=== PATIENT | male | born 1980 ===

== ENCOUNTER 2020-09-29 00:49 | Emergency (ER) | payer BC ==
--- NOTE | 2020-09-29 01:13 | EDM.PDOC ---
ED HPI GENERAL MEDICAL PROBLEM - General Chief Complaint: Back Pain or Injury Stated Complaint: back pain Time Seen by Provider: 09/29/20 01:09 Source of Information: Reports: Patient - History of Present Illness INITIAL COMMENTS - FREE TEXT/NARRATIVE: George is a 40 y/o male who is brought to the ER via POV with some acute back pain. He reports that pain just started when he got to work tonight. He denies any specific injury. He was given a medication by the safety clothing and equipment developer prior to arrival to the ER. Gera shooting pains down his legs. Reports upon arrival to the ER the pain is better. Treatments TOURIST ESCORT: Reports: NSAIDS - Related Data Allergies Allergy/AdvReac Type Severity Reaction Status Date / Time No Known Allergies Allergy Verified 09/29/20 00:51 Home Meds: Home Meds . [No Known Home Meds] 09/29/20 [History] Past Medical History - Past Health History Medical/Surgical History: Denies Medical/Surgical History Social & Family History - Tobacco Use Tobacco Use Status *Q: Never Tobacco User Second Hand Smoke Exposure: No - Caffeine Use Caffeine Use: Reports: Soda - Recreational Drug Use Recreational Drug Use: No Review of Systems - Review of Systems Review Of Systems: See Below Constitutional: Reports: No Symptoms Eyes: Reports: No Symptoms Ears: Reports: No Symptoms Nose: Reports: No Symptoms Mouth/Throat: Reports: No Symptoms Respiratory: Reports: No Symptoms Cardiovascular: Reports: No Symptoms GI/Abdominal: Reports: No Symptoms Genitourinary: Reports: No Symptoms Musculoskeletal: Reports: Back Pain Skin: Reports: No Symptoms Neurological: Reports: No Symptoms Psychiatric: Reports: No Symptoms ED EXAM, GENERAL - Physical Exam Exam: See Below General Appearance: Alert, WD/WN, No Apparent Distress (Adult male, cooperative.) Ears: Hearing Grossly Normal Nose: Normal Inspection Throat/Mouth: Normal Voice Head: Atraumatic, Normocephalic Neck: Normal Inspection Respiratory/Chest: No Respiratory Distress, Chest Non-Tender Cardiovascular: Normal Peripheral Pulses, Regular Rate, Rhythm GI/Abdominal: Normal Bowel Sounds, Soft (Male) Exam: Deferred Rectal (Males) Exam: Deferred Back Exam: Normal Inspection, Muscle Spasm (+tenderness noted in the right lower back region, but no specific spasm noted) Extremities: Normal Inspection, Normal Capillary Refill Course - Vital Signs Text/Narrative:: [id number] The patient was seen by the CHICKEN BUYER. UA done. He reported his pain was better from a pain med taken prior to arrival. Last Recorded V/S: Last Vital Signs Temp 36.2 C 09/29/20 00:54 Pulse 71 09/29/20 00:54 Resp 16 09/29/20 00:54 BP 129/73 09/29/20 00:54 Pulse Ox 99 09/29/20 00:54 - Orders/Labs/Meds Orders: Active Orders 24 hr Category Date Time Status UA W/KAMRON RFLX IF INDICATED [URIN] Stat Lab 09/29/20 01:01 Ordered Meds: Medications Discontinued Medications Generic Name Dose Route Start Last Admin Trade Name Freq PRN Reason Stop Dose Admin Cyclobenzaprine HCl 10 mg 09/29/20 01:14 Cyclobenzaprine 10 Mg Tab PO 09/29/20 01:15 ONETIME ONE Departure - Departure Time of Disposition: 01:33 Disposition: Home, Self-Care 01 Condition: Good Clinical Impression: Acute low back pain Qualifiers: Back pain laterality: unspecified Sciatica presence: without sciatica Qualified Code(s): M54.5 - Low back pain Hematuria Qualifiers: Hematuria type: unspecified type Qualified Code(s): R31.9 - Hematuria, unspecified - Discharge Information *PRESCRIPTION DRUG MONITORING PROGRAM REVIEWED*: Not Applicable *COPY OF PRESCRIPTION DRUG MONITORING REPORT IN PATIENT SAIDA: Not Applicable Instructions: Acute Back Pain, Adult, Hematuria, Adult Forms: ED Department Discharge Sepsis Event Note (ED) - Evaluation Sepsis Screening Result: No Definite Risk - Focused Exam Vital Signs: Vital Signs Temp Pulse Resp BP Pulse Ox 09/29/20 00:54 36.2 C 71 16 129/73 99 - My Orders Last 24 Hours: My Active Orders 09/29/20 01:01 UA W/KAMRON RFLX IF INDICATED [URIN] Stat - Assessment/Plan Last 24 Hours: My Active Orders 09/29/20 01:01 UA W/KAMRON RFLX IF INDICATED [URIN] Stat Assessment:: 1)Acute Low Back Pain 2)Hematuria Plan: -Ibuprofen 200mg 3 tabs orally every 6 hours x 5-7 days then every 6-8 hours as needed (Use over the counter meds) -Cyclobenzaprine 10 mg orally every 8 hours as needed for muscle spasms #30 (ER Rx) -Ice or heat applied to the area as needed -Rest, Increase activity as able. No work until tomorrow. Work note completed. -There was blood noted in your urine tonight; no infection was noted. Please follow up with your PCP to have a repeat urinalysis test to make sure that this clears up. You can make an appointment with a PCP in [place] or with one of the clinics here in [place]. -Follow up with your Primary Care Provider to arrange further diagnostic testing if the pain persists -Return to the ER if any other concerns
[2020-09-29] MEDS ORDERED: Cyclobenzaprine 10 MG Tab PO ONE (01:14)
== END 2020-09-29 01:40 | disposition home or self-care (01) ==
LOC: LL.ED 00:49
DX: M54.5 Low back pain (principal); R31.9 Hematuria, unspecified
CPT/HCPCS: 81001; 99283